=== PATIENT | female | born 1970 | race Caucasian/White ===

== ENCOUNTER 2023-03-11 20:29 | Emergency (ER) | payer BC, SELFPAY ==
[2023-03-11 20:43] VITALS: BP 139/86; PULSE 85; RESP 16; TEMP 36.8; O2SAT 98
--- NOTE | 2023-03-11 21:54 | ED.GENADULT ---
HPI - General Adult General Chief complaint: Abdominal Pain Stated complaint: upper right abdominal pain, white stool Time Seen by Provider: 03/11/23 21:54 History of Present Illness HPI narrative: abd pain, started . White stools. Abd discomfort that comes and goes. The sharp pain is upper right abd area 52-year-old woman presenting to the emergency department with concern of abdominal pain and white stools. She has not had any fever. No illness exposures noted. This pain is waxing waning and sharp in the right upper abdomen maybe across the abdomen. Has not been vomiting. Is not actually having diarrhea. History of cholecystectomy as incidental with gastric bypass. Unknown stone disease. Notes that Mom was a stone former. Review of Systems Status of ROS: Reports: 6 or more systems reviewed and unremarkable except as noted in History and below [facility] Social History Smoking Status: Never smoker Do you use any of these nicotine containing products: None How often do you have a drink containing alcohol: 2-3 times a week How many standard drinks containing alcohol do you have on a typical day: 1 or 2 AUDIT-C Alcohol total score: 3 Non-prescribed substance use: denies use service: No Exam Narrative: Exam Narrative: Pleasant. Clearly seems uncomfortable. Skin is warm and dry. Well-perfused peripherally. Extremities are without edema. I did not appreciate scleral icterus or jaundice. Breathing easily lungs appear to be clear. Is no flank pain. Abdomen is soft and moderately uncomfortable to palpation in the upper abdomen. No masses are appreciated. Const: Vital Signs, click to edit/add: Vital Signs - 24 hr 03/11/23 20:43 Temperature 98.2 F Pulse Rate [Left P ulse Oximeter] 85 Respiratory Rate 16 Blood Pressure [Ri ght Upper Arm] 139/86 Pulse Oximetry 98 Oxygen Delivery Me thod Room Air Documenting provider has reviewed patient's vital signs: yes Course Vital Signs Vital signs: Initial Vital Signs Temperature 98.2 F 03/11/23 20:43 Temperature Source Temporal Artery Scan 03/11/23 20:43 Pulse Rate 85 03/11/23 20:43 Pulse Rhythm Regular 03/11/23 20:43 Respiratory Rate 16 03/11/23 20:43 Blood Pressure 139/86 03/11/23 20:43 Blood Pressure Mean 103 03/11/23 20:43 Blood Pressure Position Sitting 03/11/23 20:43 Pulse Oximetry 98 03/11/23 20:43 Oxygen Delivery Method Room Air 03/11/23 20:43 Vital Signs Temperature 98.2 F 03/11/23 20:43 Pulse Rate 85 03/11/23 20:43 Respiratory Rate 16 03/11/23 20:43 Blood Pressure 139/86 03/11/23 20:43 Pulse Oximetry 98 03/11/23 20:43 Oxygen Delivery Method Room Air 03/11/23 20:43 Temperature 98.2 F 03/11/23 20:43 Pulse Rate 80 03/12/23 05:22 Respiratory Rate 16 03/12/23 05:22 Blood Pressure 136/88 03/12/23 05:22 Pulse Oximetry 98 03/12/23 05:22 Oxygen Delivery Method Room Air 03/12/23 05:22 Medical Decision Making MDM Narrative Medical decision making narrative: Given symptoms location of pain certainly is possible could be having hepatitis or reformed stone. Pancreatitis in differential as well. Certainly could simply be gas pain. Denies constipation. Could be vascular anomaly; no radicular symptoms. Might be some enteritis. Will check labs. Go ahead with ultrasound due to availability. Discussed ultrasound limited of the abdomen with double end tenon operator. Thought to be unremarkable. Pending Radiology over-read. Formal over-read notes normal limited abdominal ultrasound findings. Common bile duct 4 mm. Feels better with IV fluids. Feels gas is beginning to mobilize. Labs are reassuring. See patient discharge plan Lab Data Lab results reviewed: Yes I reviewed the patient's lab results Labs: Lab Results 03/11/23 03/11/23 03/11/23 Range/Units 22:05 23:38 23:45 WBC 6.49 (4.50-11.00) K/uL RBC 5.38 H (4.00-5.20) m/uL Hgb 14.5 (12.0-16.0) gm/dL Hct 45.1 (33.0-51.0) % MCV 84 (80-100) fL MCH 27 (26-34) pg MCHC 32 (32-36) gm/dL Plt Count 205 (140-440) K/uL Neut % (Auto) 49.3 (42.0-72.0) % Lymph % (Auto) 40.2 (20-44) % [place] % (Auto) 7.2 (0.0-11.0) % Eos % (Auto) 2.2 (0.0-7.0) % Baso % (Auto) 0.3 (0.0-3.0) % Neut # (Auto) 3.20 (1.7-7.0) K/uL Lymph # (Auto) 2.60 (0.90-2.90) K/uL [place] # (Auto) 0.50 (0.00-0.90) K/UL Eos # (Auto) 0.10 (0.00-0.50) K/uL Baso # (Auto) 0.00 (0.00-0.30) K/uL Sodium 138 (135-149) mmol/L Potassium 3.3 L (3.6-5.1) mmol/L Chloride 105 (96-114) mmol/L Carbon Dioxide 25 (20-32) mmol/L BUN 19 (7-30) mg/dL Creatinine 0.5 (0.5-1.5) mg/dL Estimated GFR 114 ml/min Glucose 76 (60-115) mg/dL Calcium 8.9 (8.4-10.6) mg/dL Total Bilirubin 0.2 (0.1-1.5) mg/dL Direct Bilirubin 0.0 (0.0-0.5) mg/dL AST 24 (12-35) U/L ALT 37 H (4-35) U/L Alkaline Phosphatase 87 (40-150) U/L C-Reactive Protein < 0.5 L (0.5-1.0) mg/dL Total Protein 7.1 (6.0-8.3) g/dL Albumin (3.3-5.0) g/dL Lipase Cancelled Urine Color Yellow (Yellow) Urine Appearance Clear (Clear) Urine pH 5.5 (5.0-8.5) Ur Specific [place] 1.025 (1.000-1.030) Urine Protein Negative (Negative) Urine Glucose (UA) Negative (Negative) Urine Ketones Negative (Negative) Urine Blood Negative (Negative) Urine Nitrite Negative (Negative) Urine Bilirubin Negative (Negative) Urine Urobilinogen 0.2 (0.2-1.0) Ur Leukocyte Esterase Negative (Negative) Urine RBC 0-2 (0-2) Urine WBC 0-2 (0-5) Ur Squamous Epith Cells Few (None-Few) Urine Bacteria Few A (None) Discharge Plan Discharge Clinical Impression: Abnormal stool color, Abdominal pain Patient Disposition: Home w/ Parent or Adult Condition: Improved Additional Instructions: I would focus on hydration with slow diet advance over the next 24-36 hours. Maybe diluted juices, soup broths. Crackers, toast, rice. Try to increase fiber in your diet as well. Zofran from [facility] for nausea if needed. Follow Up/Referrals: Aminah Perea PA-C [Primary Care Provider] - Stand Alone Forms: [employer] Info Instructions
--- NOTE | 2023-03-11 21:56 | CRLHL7_ITS ---
For Patients: As a result of the Century Cures Act, medical imaging exams and procedure reports are released immediately into your electronic medical record. You may view this report before your referring provider. If you have questions, please contact your health care provider. INDICATION: Right upper quadrant abdomen pain. Status post cholecystectomy TECHNIQUE: Ultrasound abdomen limited. Sonographic images of the right upper quadrant were obtained using curtis-scale and color Doppler images. COMPARISON: None. FINDINGS: Liver: Normal in size and echotexture. No suspicious masses. No intrahepatic biliary dilatation. Gallbladder: Absent. Common bile duct: 4 mm. Pancreas: Partially visualized, unremarkable Right kidney: Normal in size. Normal echotexture and cortex. No suspicious masses, stones, or hydronephrosis. Vasculature: Proximal abdominal aorta and IVC are unremarkable. IMPRESSION: Status post cholecystectomy. Otherwise unremarkable right upper quadrant ultrasound. Dictated by Marcela Block MD @ 03/11/2023 11:30:21 PM (Electronically Signed)
--- NOTE | 2023-03-11 21:58 | ED.NURSE ---
patient does not have a gall bladder and concerned of having stones in the duct. Mother has had this issue also. last eaten was halle
[2023-03-11 23:41] LABS: Appearance Urine Clear (Clear); Bilirubin Urine Negative (Negative); Blood Urine Negative (Negative); Color Urine Yellow (Yellow); Glucose Urine Negative (Negative); Ketones Urine Negative (Negative); Leukocyte Esterase Urine Negative (Negative); Nitrite Urine Negative (Negative); Protein Urine Negative (Negative); Specific Gravity Urine 1.025 (1.000-1.030); Urobilinogen Urine 0.2 (0.2-1.0); pH Urine 5.5 (5.0-8.5)
[2023-03-11] MEDS: 0.9 % SODIUM CHLORIDE 1000 ml 1,000 ML IV (23:47)
[2023-03-11 23:50] LABS: Bacteria Urine Few; RBC Urine 0-2 (0-2); Squamous Epithelial Cell Urine Few (None-Few); WBC Urine 0-2 (0-5)
[2023-03-12 01:11] LABS: White Blood Count* 6.49 K/uL (4.50-11.00)
[2023-03-12 01:12] LABS: Basophils Percent Auto 0.3 % (0.0-3.0); Eosinophils Percent Auto 2.2 % (0.0-7.0); Hematocrit 45.1 % (33.0-51.0); Hemoglobin* 14.5 gm/dL (12.0-16.0); Lymphocytes Percent Auto 40.2 % (20-44); Mean Corpuscular HGB Conc 32 gm/dL (32-36); Mean Corpuscular Hemoglobin 27 pg (26-34); Mean Corpuscular Volume 84 fL (80-100); Monocytes Percent Auto 7.2 % (0.0-11.0); Neutrophils Percent Auto 49.3 % (42.0-72.0); Platelet Count* 205 K/uL (140-440); Red Blood Count 5.38 m/uL (4.00-5.20); Slide Review Reflex No
[2023-03-12 01:24] LABS: Chloride* 105 mmol/L (96-114)
[2023-03-12 01:25] LABS: Potassium* 3.3 mmol/L (3.6-5.1); Sodium* 138 mmol/L (135-149)
[2023-03-12 01:27] LABS: Alkaline Phosphatase* 87 U/L (40-150); Aspartate Amino Transferase* 24 U/L (12-35); Bilirubin Total* 0.2 mg/dL (0.1-1.5); Carbon Dioxide* 25 mmol/L (20-32); Creatinine* 0.5 mg/dL (0.5-1.5); Estimated Glomerular Filt Rate 114 ml/min; Total Protein* 7.1 g/dL (6.0-8.3)
[2023-03-12 01:28] LABS: Alanine Aminotransferase* 37 U/L (4-35); Blood Urea Nitrogen* 19 mg/dL (7-30); Calcium* 8.9 mg/dL (8.4-10.6); Glucose* 76 mg/dL (60-115)
[2023-03-12 01:39] LABS: C Reactive Protein* < 0.5 mg/dL (0.5-1.0)
[2023-03-12] MEDS: 0.9 % SODIUM CHLORIDE 1000 ml 1,000 ML IV (03:48)
[2023-03-12] MEDS: ONDANSETRON 2 MG/ML inj 4 MG IVP (03:48)
[2023-03-12 05:22] VITALS: BP 136/88; PULSE 80; RESP 16; O2SAT 98
== END 2023-03-12 05:23 | disposition home or self-care (01) ==
PROVIDERS: Emergency Provider Family Medicine; PCP Physician Assistant Medical
DX: R10.9 Unspecified abdominal pain (principal); R19.5 Other fecal abnormalities
CPT/HCPCS: 36415; 76705; 80048; 80076; 81001; 83690; 85025; 86140; 87086; 96361; 96374; 99284; J2405; J7030

== ENCOUNTER 2024-02-23 21:19 | Emergency (ER) | payer BC, SELFPAY ==
[2024-02-23 21:24] VITALS: BP 144/95; PULSE 94; RESP 16; TEMP 36.9; O2SAT 98; BMI 34.0
[2024-02-23 22:00] VITALS: O2SAT 97
[2024-02-23] MEDS: ONDANSETRON 2 MG/ML inj 4 MG IVP (22:00)
[2024-02-23] MEDS: 0.9 % SODIUM CHLORIDE 1000 ml 1,000 ML IV ×2 (22:00→22:34)
[2024-02-23] MEDS: HYDROmorphone 0.5 mg/0.5 ml inj IVP (22:04)
[2024-02-23 22:08] LABS: Lactate* 1.2 mmol/L (0.5-1.9)
[2024-02-23 22:11] LABS: Appearance Urine Clear (Clear); Bilirubin Urine 1+ (Negative); Blood Urine Trace-intact (Negative); Color Urine Yellow (Yellow); Glucose Urine Negative (Negative); Ketones Urine Trace (Negative); Leukocyte Esterase Urine Negative (Negative); Nitrite Urine Negative (Negative); Protein Urine Trace (Negative); Specific Gravity Urine >= 1.030 (1.000-1.030); Urobilinogen Urine 0.2 (0.2-1.0); pH Urine 5.5 (5.0-8.5)
--- OUTSIDE RECORDS SUMMARY | 2024-02-23 22:13 | XMS_ITS | Clinical Summary ---
Author Organization [facility] Address [place], [place] [address] Care Team Providers Care Rn Endocrinology Name Role Phone Aminah Perea Primary Care Provider Malinda Chen Unavailable [phone] Elisa Rivera RN Unavailable [phone] Allergies Active Allergy Reactions Criticality Noted Date Comments Carbamazepine Rash 02/17/2020 Medications Medication Sig Dispensed Refills Start Date End Date Status VITAMIN B-12 1,000 MCG SUBLINGUAL TAB 1 tablet daily Ac tive multivitamin chewable (CENTRUM) 8 mg-400 mcg- 10 mcg chew Bariatric chewable 1 tab daily 0 07/14/2021 Active estradioL (ESTRACE) 0.01% (0.1 mg/g) vaginal creamIndications:A trophic vaginitis Insert 1 g into the vagina once weekly. 42.5 g 04/24/2023 Active estradiol 0.0375 mg/24 hr SEMIWEEKLY patchIndications:S /P hysterectomy Apply 1 Patch on dry, clean, hairless skin every Monday and . 24 Patch 3 02/12/2024 Active estradiol 0.0375 mg/24 hr SEMIWEEKLY patchIndications:S /P hysterectomy APPLY 1 PATCH ON DRY, CLEAN, HAIRLESS SKIN EVERY MONDAY AND MONDAY 24 Patch 1 09/04/2023 Discontinue d(Reorder (E-cancel not sent)) benzonatate (Tessalon Perles) 100 mg capsuleIndications :Pneumonia of left lower lobe due to infectious organism Take 1 Capsule (100 mg) by mouth 3 times daily if needed for Cough. 30 Capsule 01/16/2024 4 Discontinue d(*Patient states no longer taking) albuterol HFA (ProAir HFA) 90 mcg/actuation inhalerIndications :Pneumonia of left lower lobe due to infectious organism Inhale 1-2 Puffs by mouth every 6 hours if needed for Shortness of Breath 1st choice. 1 Each 01/16/2024 4 Discontinue d(*Patient states no longer taking) fluconazole (DIFLUCAN) 150 mg tabletIndications: Antibiotic-induced yeast infection Take 1 Tablet (150 mg) by mouth once weekly. 2 Tablet 01/16/2024 4 Discontinue d(*Patient states no longer taking) Active Problems Patient Care Coordination No te Formatting of this note is d ifferent from the original. Weight Management - Adult Surgical Program Patient Received Binder: Yes Part of [facility]TY[facility] Program: no RDC or GS Patient: No Initial Consult / Established Care 06/21/2022 with Malinda Rivera RN [facility] Candidate: yes Intake: Wt Readings from Last 1 Encounters: 06/21/22 78.7 kg (173 lb 9.6 oz) lbs, Ht Readings from Last 1 Encounters: 06/21/22 1.549 m (5' 0.98) BMI: 32.82 Planned Operation Distalization Payor: [employer] [place] / Plan: [employer]PAD [employer] [place] / Product Type: *No Product type* / Insurance requirements:None Est. Pgm Completion: ~ September, Procedure Location: [facility] Co-morbidities: To be determined Possible GERD Orders: Labs Yes - RESULTED 06/22/2022: low ferritin. Venofer therapy ordered at [place] by LISE Teixeira. Imaging / Procedures Upper GI Xray Series (08/15/22) and Endoscopy - Dock (08/30/22) Pre-Surgery Program Consults: - Registered Dietitian 3 - Psychological Evaluation: yes Referrals: No reports that she has never smoked. She has never used smokeless tobacco. Problem Noted Date Diagnosed Date Abdominal pain 10/30/2014 Constipation 10/30/2014 S/P gastric bypass 09/21/2010 Unspecified vitamin D deficiency 01/01/2009 Fatigue 05/06/2008 ASMITA (iron deficiency anemia) 05/06/2008 Unspecified intestinal malabsorption 05/06/2008 Weight gain status post gastric bypass Resolved Problems Problem Noted Date Diagnosed Date Resolved Date Other abnormal glucose 05/20/200810/30 Overview: Fasting 108 05/05 Encounters Date Type Department Care Team Description 02/12/2024 7:30 AM CDT Office Visit [facility] [address] [place] [address] Aminah Perea PA Physical (53 years old) 02/12/2024 Travel 01/16/2024 8:00 AM CDT Ancillary Procedure [facility] [address] [place] [address] 01/16/2024 7:25 AM CDT Office Visit [facility] [address] [place] [address] Jacques Pozo PA URI 01/16/2024 Travel 12/19/2023 11:30 AM CDT Office Visit [facility] [address] [place] [address] Chadwick Fragoso MD Sinus Problem 12/19/2023 Travel from Last 3 Months Immunizations Name Administration Dates Next Due COVID-19 vaccine (Moderna 100mcg/0.5mL) PF, MDV 07/09/2021,10/15/2020,09/17/2020 Influenza RIV4 (Age 18+ Year s) PRESERV FREE 07/09/2021 Influenza, IIV3 (Age 6-35 mos) 06/19/2009 Influenza, IIV3 (Age >=3 years) 05/02/20 14,05/03/2013,06/01/2012, 011,06/04/2010,07/14/2006,08/18/2005,04/2003 Influenza, IIV4 05/01/2015 Influenza, IIV4 (=>6mos) MDV 05/10/2019,05/11/20 18,05/12/2017 Td (Age >=7 Years) 02/27/2003 Tdap 05/16/2014 Family History Medical History Relation Name Comments Hyperlipidemia Father Hypertension Father Psychiatric illness Father Stroke Father Diabetes Maternal Grandmother Hyperlipidemia Mother Hypertension Mother Osteoporosis Mother Psychiatric illness Paternal Grandmother Cancer-breast No Family History Relation Name Status Comments Father Alive Maternal Grandfather Maternal Grandmother Mother Alive Paternal Grandfather Paternal Grandmother Social History Tobacco Use Types Packs/Day Years Used Date Smoking Tobacco: Never Smokeless Tobacco: Never Tobacco Cessation:Counseling Given: Yes Alcohol Use Standard Drinks/Week Comments Yes 1 (1 standard drink = 0.6 oz pur e alcohol) 1 drink weekly PHQ-2 Answer Date Recorded PHQ-2 TOTAL SCORE 3 02/12/2024 Social Connections Answer Date Recorded Frequency of Communication with Friends and Fami ly 0 01/16/2024 Financial Resource Strain Answer Date R ecorded Difficulty of Paying Living Expenses 3 01/16/2024 Difficulty of Paying Living Expenses Not on file 01/16/2024 Food Insecurity Answer Date Recorded Worried About Running Out of Food in the Last Ye ar 1 01/16/2024 Transportation Needs Answer Date Record ed Lack of Transportation (Medical) 1 01/16/2024 Housing Stability Answer Date Recorded Unable to Pay for Housing in the Last Year 1 01/16/2024 Sex and Gender Information Value Date Recorded Sex Assigned at Female 03/17/2020 8:00 AM CDT Gender Identity Female 03/17/2020 8:00 AM CDT Sexual Orientation Straight 03/17/2020 7: 59 AM CDT Travel History Travel Start Travel End [place] 01/27/2024 02/01/2024 Obstetrics History Para Term AB IAB SAB Ectopic Multiple Livin g Live Births 2 2 2 0 0 0 0 0 2 Date Outcome GA Total Labor Labor/2nd/3rd Weight Sex Type Anes PTL Louise A1 A5 Name Clin Term Term Last Filed Vital Signs Vital Sign Reading Time Taken Comments Blood Pressure 135/88 02/12/2024 7:31 AM CDT Pulse 64 02/12/2024 7:31 AM CDT Temperature 38.1 ??C (100.5 ??F) 01/16/2024 7:22 AM C DT Respiratory Rate 16 03/28/2023 5:36 PM CDT Oxygen Saturation 94% 01/16/2024 7:22 AM CDT Inhaled Oxygen Concentration - - Weight 82.2 kg (181 lb 3.2 oz) 02/12/2024 7:31 A M CDT Height 154.9 cm (5' 1) 02/12/2024 7:31 AM CDT Body Mass Index 34.24 02/12/2024 7:31 AM CDT Plan of Treatment Health Maintenance Due Date Last Done Comments HIV for age 15-65 1987 Hepatitis C screening for age 18-79 1990 Zoster (shingles) series for age 50+ (1 of 2) 2022 COVID-19 vaccine series (2022- season) 2023 07/09/2021, 10/15/2020, 09/17/2020 Mammogram for age 45-75 03/16/2024 03/16/20, 03/14/2022, 03/02/2020 Fecal testing non-DNA (FIT,FOBT,iFOBT) for age 45-75 03/31/2024 03/31/2023, 03/15/2022 Influenza for age 50-64 04/28/2024 07/09/20, 05/10/2019, 05/11/2018, Additional history exists Tetanus booster 05/16/2024 05/16/2014, 02/27/2003 BMI (ht and wt on same day) for age 18+ 02/11/2025 02/12/2024, 03/28/2023, 01/17/2023, Additional history exists Depression screening for age 12+ 02/11/2025 02/12/2024, 04/20/2022, 04/06/2022, Additional history exists Lipids for age 45-75 02/11/2029 02/12/2024, 01/10/2023, 03/14/2022, Additional history exists Pap test for age 21-65 Discontinued 02/05/2007 Tdap Completed 05/16/2014 Pneumococcal series for age 6-64 Aged Out No longer eligible based on patient's age to complete this topic Procedures Procedure Name Priority Date/Time Associated Diagnosis Comments BASIC METABOLIC PANEL Routine 02/12/2024 8:07 AM CDT Screening for diabetes mellitus LIPID PANEL W REFLEX MEASURED LDL Routine 02/12/2024 8:07 AM CDT Screening cholesterol level XR CHEST 2 VIEWS PA AND LATERAL STAT 01/16/2024 7:54 AM CDT Body aches Fever, unspecified fever cause Influenza-like illness STREP A PCR Routine 01/16/2024 7:41 AM CDT Fever, unspecified fever cause THROAT RAPID STREP A WITH REFLEX Routine 01/16/2024 7:41 AM CDT Fever, unspecified fever cause COVID/FLU/RSV PANEL Routine 01/16/2024 7:32 AM CDT Body aches Fever, unspecified fever cause OCCULT BLOOD IFOBT STOOL Routine 03/31/2023 1:13 PM CDT Screening for colon cancer XR MAMMO BILAT SCREENING Routine 03/16/2023 8:22 AM CDT Visit for screening mammogram AUTO EMISSIONS TECHNICIAN THIN PREP PAP SCREEN IMAGED Routine 02/05/2007 11:10 AM CDT Routine Gynecological Examination from Last 3 Months or Most Recently Relevant to Health Maintenance Results * (ABNORMAL) LIPID PANEL W REFLEX MEASURED LDL (02/12/2024 8:07 AM CDT) CHOLESTEROL,TOTAL 225(H) 100 - 199 mg/dL 02/12/2024 2:00 PM CDT [facility] Comment: Cholesterol, Total Reference Ranges Desirable <200 mg/dL Borderline 200-239 mg/dL High >=240 mg/dL TRIGLYCERIDES 101 <150 mg/dL 02/12/2024 2:00 PM CDT [facility] HDL CHOLESTEROL 64 >40 mg/dL 2:00 PM CDT [facility] NON-HDL CHOLESTEROL 161(H) <145 mg/dl 02/12/2024 2:00 PM CDT [facility] CHOL/HDL RATIO 3.52 <4.50 02/12/2024 2:00 PM CDT [facility] TRA [facility] LDL CHOLESTEROL 141(H) <=130 mg/dL 02/12/2024 2:00 PM CDT [facility] VLDL CHOLESTEROL 20 <=30 mg/dL 02/12/2024 2:00 PM CDT [facility] PROVIDER ORDERED STATUS RANDOM 02/12/2024 2:00 PM T [facility] Blood BLOOD SPECIMEN / Unknown Venipuncture / Unknown 02/12/2024 8:07 AM CDT 02/12/2024 8:07 AM CDT Aminah LEZAMA CHEMISTRY [facility] [address] [place] [address], * (ABNORMAL) BASIC METABOLIC PANEL (02/12/2024 8:07 AM CDT) SODIUM 141 136 - 145 mmol/L 02/12/2024 2:00 PM CDT [facility] POTASSIUM 4.3 3.5 - 5.1 mmol/L 02/12/2024 2:00 PM CDT [facility] CHLORIDE 106 98 - 107 mmol/L 02/12/2024 2:00 PM CDT [facility] CO2,TOTAL 27 22 - 29 mmol/L 02/12/2024 2:00 PM T [facility] ANION GAP 8 5 - 18 02/12/2024 2:00 PM CDT [facility] GLUCOSE 97 70 - 99 mg/dL 02/12/2024 2:00 PM T [facility] CALCIUM 9.7 8.6 - 10.0 mg/dL 02/12/2024 2:00 PM CDT [facility] BUN 18 6 - 20 mg/dL 02/12/2024 2:00 PM CDT [facility] CREATININE 0.51 0.50 - 0.90 mg/dL 02/12/2024 2:00 PM CDT [facility] BUN/CREAT RATIO 35(H) 10 - 20 2:00 PM CDT [facility] eGFR >90 >90 mL/min/1.7 3m2 02/12/2024 2:00 PM CDT [facility] Comment:As of 2021, eG FR is calculated by the CKD-EPI creatinine equation without race adjustment. ??eGFR can be influenced by muscle mass, exercise, and diet. ??The reported eGFR is an estimation only and is only applicable if the renal function is stable. Blood BLOOD SPECIMEN / Unknown Venipuncture / Unknown 02/12/2024 8:07 AM CDT 02/12/2024 8:07 AM CDT Aminah LEZAMA CHEMISTRY [facility] [address] [place] [address], [place] * XR CHEST 2 VIEWS PA AND LATERAL (01/16/2024 7:54 AM CDT) Anatomical Region Laterality Modality CHEST, THORAX, Lung, HEART Compu rell Radiography 01/16/2024 8:14 AM CDT Addenda Addendum by Irving Guaamn MD on 01/16/2024 8:22 AM CDT INDICATION: Body aches TECHNIQUE: Chest 2 views. COMPARISON: None. FINDINGS: Cardiovascular and mediastinum: ??Heart size and vasculature are normal in caliber and appearance. ?? Lungs and pleural spaces: ??Patchy consolidation at the left lung base concerning for pneumonia. No sign of pleural effusion. ??No pneumothorax. ?? Bones and soft tissues: ??No significant findings. IMPRESSION: Patchy consolidation at the left lung base concerning for pneumonia. Dictated by Irving Guaman MD @ 01/16/2024 8:14:00 AM ----- ADDENDUM ----- JACQUES LEZAMA received report at 8:19am Dictated by Irving Guaman MD @ Jan 16 2024 ??8:22AM (Electronically Signed) Impressions 01/16/2024 8:14 AM CDT Patchy consolidation at the left lung base concerning for pneumonia. Dictated by Irving Guaman MD @ 01/16/2024 8:14:00 AM (Electronically Signed) Narrative 01/16/2024 8:14 AM CDT For Patients: ??As a result of the Cures Act, medical imaging exams and procedure reports are released immediately into your electronic medical record. ??You may view this report before your referring provider. ??If you have questions, please contact your health care provider. INDICATION: Body aches TECHNIQUE: Chest 2 views. COMPARISON: None. FINDINGS: Cardiovascular and mediastinum: ??Heart size and vasculature are normal in caliber and appearance. ?? Lungs and pleural spaces: ??Patchy consolidation at the left lung base concerning for pneumonia. No sign of pleural effusion. ??No pneumothorax. ?? Bones and soft tissues: ??No significant findings. Procedure Note Irving Guaman MD - 01/16/2024 For Patients: As a result of the Cures Act, medical imagingexams and procedure reports are released immediately into your electronicmedical record. You may view this report before your referring provider.If you have questions, please contact your health care provider. INDICATION: Body aches TECHNIQUE: Chest 2 views. COMPARISON: None. FINDINGS: Cardiovascular and mediastinum: Heart size and vasculature are normal incaliber and appearance. Lungs and pleural spaces: Patchy consolidation at the left lung baseconcerning for pneumonia. No sign of pleural effusion. No pneumothorax. Bones and soft tissues: No significant findings. IMPRESSION: Patchy consolidation at the left lung base concerning for pneumonia. Dictated by Irving Guaman MD @ 01/16/2024 8:14:00 AM (Electronically Signed) Jacques PABLO IMAGIN G * STREP A PCR (01/16/2024 7:41 AM CDT) GROUP A STREP Negative 01/16/2024 3:52 PM CDT [facility] Throat SPECIMEN FROM THROAT / Unknown Non-Blood / Unknown 01/16/2024 7:41 AM CDT 01/16/2024 7:50 AM CDT Jacques LEZAMA MICROBIOLOGY [facility] [address] [place] [address], * THROAT RAPID STREP A WITH REFLEX (01/16/2024 7:41 AM CDT) STREP A ANTIGEN Negative 01/16/2024 7:54 AM CDT [facility] Comment:PCR to follow. Throat SPECIMEN FROM THROAT / Unknown Non-Blood / Unknown 01/16/2024 7:41 AM CDT 01/16/2024 7:41 AM CDT Jacques LEZAMA MICROBIOLOGY Performing Organization Address [facility] Co de Phone Number [facility] [address] [place] [address], * COVID/FLU/RSV PANEL (01/16/2024 7:32 AM CDT) COVID 19 [facility] Negative Negative 01/16/2024 4:09 PM CDT [facility] Comment:All PCR tests are reagan bject to false negative result due to variability in viral load and collection technique. A negative result does not rule out a SARS-CoV-2 infection. Clinical correlation required. INFLUENZA A PCR Negative 4 4:09 PM CDT [facility] INFLUENZA B PCR Negative 4 4:09 PM CDT [facility] Respiratory Syncytial Virus Negative 01/16/2024 4:09 PM CDT [facility] Swab NASOPHARYNGEAL SWAB / Unknown Non-Blood / Unknown 01/16/2024 7:32 AM CDT 01/16/2024 7:33 AM CDT Jacques LEZAMA MICROBIOLOGY [facility] [address] [place] [address], [place] * OCCULT BLOOD IFOBT STOOL (03/31/2023 1:13 PM CDT) STOOL BLOOD ,IFOBT Negative Negative 04/05/2023 8:54 AM CDT [facility] Stool STOOL SPECIMEN / Unknown Non-Blood / Unknown 03/31/2023 1:13 PM CDT 04/04/2023 1:13 PM CDT Aminah LEZAMA LABORATORY [facility] [address] [place] [address], * XR MAMMO BILAT SCREENING (03/16/2023 8:22 AM CDT) Anatomical Region Laterality Modality BREASTS, Breast Left, Breast Right Bilateral Mammography Impressions 03/16/2023 4:37 PM CDT ??There is no radiographic evidence for malignancy. ??Recommend annual mammograms. MAMMOGRAM ASSESSMENT: ??ACR 1 Negative PATIENTS: You will also receive a letter with your examination results in an easy to read format. ??If you have questions about your results, please contact your referring provider. Narrative 03/16/2023 4:37 PM CDT For Patients: As a result of the Century Cures Act, medical imaging exams and procedure reports are released immediately into your electronic medical record. You may view this report before your referring provider. If you have questions, please contact your health care provider. XR MAMMO BILAT SCREENING [[id number]] CLINICAL HISTORY: ??This is an asymptomatic 52 y.o. patient. INDICATION FOR EXAM: Mammogram Screening. TECHNIQUE: CC & MLO views were obtained. ??This study was evaluated with the assistance of Computer-Aided Detection. COMPARISON FILM: Yes 03/14/22 [facility] [employer] 03/02/20 [facility] FINDINGS: ??The breasts have scattered areas of fibroglandular density. There are no dominant masses, suspicious micro calcifications or areas of architectural distortion. Aminah LEZAMA MAMMO * AUTO EMISSIONS TECHNICIAN THIN PREP PAP SCREEN IMAGED (02/05/2007 11:10 AM CDT) CYTOLOGY ??CYTOPATHOLOGY REPORT [facility] ?? Status: Final Report ? [id number] ?? CLINICAL INFORMATION ?LMP ? : 10/04 ?Previous Pap Date ? : Not given ?Previous PAP Dx ? : Negative for intraepithelial lesion or ?malignancy. ?Previous Victor/bx date : None ?Previous Colposcopy/Bx: None ?Hormone Usage ? : None ?Menstrual Status ?: other: see comment ?Appearance of Cervix ??: WNL ?Victor/Bx done today ?: No ?HPV Request ? : Reflex HPV test if PAP Dx ASCUS ?? SPECIMEN SOURCE ?: Cervical/vaginal ThinPrep Vial, screening ?? SPECIMEN ADEQUACY ?: Satisfactory for evaluation Endocervical ?component present. ? INTERPRETATION/RES ULT: ?Negative for intraepithelial lesion or malignancy. ? Cytology 1st Screener : ??gw ?? Signed by: ? gw ?? This specimen was screened by the FDA approved ThinPrep Imaging ?? System and manually reviewed. ?? NOTE: The Pap test is a screening technique, not a diagnostic ?? procedure. It is used primarily to screen for squamous cancers and ?? precursor lesions. Published studies have shown that it is subject to ?? both false negative and false positive results. The pap test should ?? not be used as the sole means to diagnose or exclude pre-malignant and ?? malignant lesions. ?? COLLECTED: 02/05/07 ?? ACCESSIONED: 02/05/07 ?? SIGNED: 02/07/07 [facility] Cervical (Cervical) 02/05/2007 11:10 AM CDT 02/05/2007 11:06 AM CDT Jackie Plaza MD PATHOLOGY/CYTOLO GY [facility] INTERNAL ZIP [address] [place] [phone] from Last 3 Months or Most Recently Relevant to Health Maintenance Advance Directives * Full Code (Latest Code Status on File) Date Activated Date Inactivated Comments 08/30/2022 10:33 AM 08/30/2022 2:36 PM Question Answer Comments Code Status Discussion: Reviewed Preferences Care Teams Rn Endocrinology Relationship Specialty Start Date End Date Aminah Perea PA [address] [place] [address] PCP - General Physician It Support Consultant 02/18/20 Malinda Chen PA [address] [id number] Physician's It Support Consultant Physician It Support Consultant 06/21/22 Elisa Rivera RN [address] [id number] Product Designer Registered Nurse 06/21/22
--- OUTSIDE RECORDS SUMMARY | 2024-02-23 22:13 | XMS_ITS | Referral Summary ---
Author Organization [facility] Address [address] [place] [address] Care Team Providers Care Director Construction Services Name Role Phone No Ref-Primary, Physician Primary Care Provider Allergies Active Allergy Reactions Criticality Noted Date Comments Carbamazepine Swelling High 06/15/2017 Lips and face Nsaids 10/01/2014 Doesn't take secondary to gastric bypass 06/09/2017 Medications Medication Sig Dispensed Refills Start Date End Date Status cyanocobalamin [address] 1 tablet under the tongue daily Active estradiol (VIVELLE-DOT) 0.075 MG/24HR BIW patch Place 1 patch onto the skin twice a week Active ONDANSETRON PO Take 1 tablet by mouth every 8 hours as needed Active SUMATRIPTAN SUCCINATE PO Take 50 mg by mouth every 8 hours as needed Active HYDROcodone-acetami nophen (NORCO) 5-325 MG per tabletIndications:F emale genital prolapse, unspecified type Take 1-2 tablets by mouth every 4 hours as needed for other (Moderate to Severe Pain) 30 tablet 06/17/2017 Active Additional Information Patient not taking.Reported on 08/06/2019 Resolved Problems Problem Noted Date Diagnosed Date Resolved Date Prolapse of female pelvic organs 06/16/2017 06/17/2017 Social History Tobacco Use Types Packs/Day Years Used Date Smoking Tobacco: Never Alcohol Use Standard Drinks/Week Comments Yes 0 (1 standard drink = 0.6 oz pur e alcohol) socially Adolescent Education Answer Date Record ed Getting School Help Needed Not on file 06/10 Sex and Gender Information Value Date Recorded Sex Assigned at Not on file Gender Identity Not on file Sexual Orientation Not on file Last Filed Vital Signs Vital Sign Reading Time Taken Comments Blood Pressure 121/83 08/06/2019 2:10 PM MAINTENANCE SHOP TECHNICIAN Pulse 82 08/06/2019 2:10 PM MAINTENANCE SHOP TECHNICIAN Temperature 37.1 ??C (98.8 ??F) 08/06/2019 2:10 PM CS T Respiratory Rate 16 06/17/2017 7:23 AM CDT Oxygen Saturation 98% 08/06/2019 2:10 PM MAINTENANCE SHOP TECHNICIAN Inhaled Oxygen Concentration - - Weight 70.8 kg (156 lb 1.6 oz) 08/06/2019 2:10 P M MAINTENANCE SHOP TECHNICIAN Height 154.9 cm (5' 1) 08/06/2019 2:10 PM MAINTENANCE SHOP TECHNICIAN Body Mass Index 29.49 08/06/2019 2:10 PM MAINTENANCE SHOP TECHNICIAN Plan of Treatment Not on file Medical Devices Implanted Type Area Billposter Device Identifier Shelf Expiration Date Model / Serial / Lot Mesh Sling Artisyn Sacrocolpopexy Arty Implanted:Qty: 1 on 06/16/2017 by Casey Olsen MD at [facility] Mesh N/A: Pelvis [employer]- 12/25/2018 [id number] / / [id number] Advance Directives For more information, please contact: [phone] * Full Code (Latest Code Status on File) Date Activated Date Inactivated Comments 06/16/2017 6:33 PM 06/17/2017 1:59 PM Care Teams Director Construction Services Relationship Specialty Start Date End Date No Ref-Primary, Physician PCP - General 06/14/17
--- OUTSIDE RECORDS SUMMARY | 2024-02-23 22:13 | XMS_ITS | Clinical Summary ---
Author Organization [facility] Address [address] [place] [address] Care Team Providers Care Cabinetmaker Maintenance Name Role Phone No Ref-Primary, Physician Primary [...] Comments Blood Pressure 121/83 08/06/2019 2:10 PM FREIGHT WEIGHER Pulse 82 08/06/2019 2:10 PM FREIGHT WEIGHER Temperature 37.1 ??C (98.8 ??F) 08/06/2019 2:10 PM CS T Respiratory Rate 16 06/17/2017 7:23 AM CDT Oxygen Saturation 98% 08/06/2019 2:10 PM FREIGHT WEIGHER Inhaled Oxygen Concentration - - Weight 70.8 kg (156 lb 1.6 oz) 08/06/2019 2:10 P M FREIGHT WEIGHER Height 154.9 cm (5' 1) 08/06/2019 2:10 PM FREIGHT WEIGHER Body Mass Index 29.49 08/06/2019 2:10 PM FREIGHT WEIGHER Plan of Treatment Not on file Medical Devices Implanted Type Area Representative Device Identifier Shelf Expiration Date Model / Serial / Lot Mesh Sling Artisyn Sacrocolpopexy Arty Implanted:Qty: 1 on 06/16/2017 by Casey Olsen MD at [facility] Mesh N/A: Pelvis [employer]- 12/25/2018 [id number] / / [id number] Advance Directives For more information, please contact: [phone] * Full Code (Latest Code Status on File) Date Activated Date Inactivated Comments 06/16/2017 6:33 PM 06/17/2017 1:59 PM Care Teams Cabinetmaker Maintenance Relationship Specialty Start Date End Date No Ref-Primary, Physician PCP - General 06/14/17
[2024-02-23 22:21] LABS: Bacteria Urine Moderate; RBC Urine 0-2 (0-2); Squamous Epithelial Cell Urine Moderate (None-Few); WBC Urine 0-2 (0-5)
[2024-02-23 22:23] LABS: Albumin* 4.5 g/dL (3.3-5.0); Chloride* 102 mmol/L (96-114); Sodium* 136 mmol/L (135-149)
[2024-02-23 22:24] LABS: Potassium* 3.4 mmol/L (3.6-5.1)
[2024-02-23 22:25] LABS: Amylase* 78 U/L (18-89)
[2024-02-23 22:26] LABS: Alkaline Phosphatase* 90 U/L (40-150); Anion Gap 5 mEq/L (7-15); Aspartate Amino Transferase* 39 U/L (12-35); Basophils Percent Auto 0.1 % (0.0-3.0); Bilirubin Direct* 0.3 mg/dL (0.0-0.5); Bilirubin Total* 0.5 mg/dL (0.1-1.5); Blood Urea Nitrogen* 11 mg/dL (7-30); Carbon Dioxide* 29 mmol/L (20-32); Creatinine* 0.5 mg/dL (0.5-1.5); Eosinophils Percent Auto 0.1 % (0.0-7.0); Est. Creatinine Clearance* 100.45; Estimated Glomerular Filt Rate 113 ml/min; Hematocrit 43.4 % (33.0-51.0); Hemoglobin* 13.9 gm/dL (12.0-16.0); Immature Granulocytes Pct Auto 1.3 %; Lymphocytes Percent Auto 11.3 % (20-44); Mean Corpuscular HGB Conc 32 gm/dL (32-36); Mean Corpuscular Hemoglobin 27 pg (26-34); Mean Corpuscular Volume 83 fL (80-100); Monocytes Percent Auto 4.4 % (0.0-11.0); Neutrophils Percent Auto 82.8 % (42.0-72.0); Platelet Count* 271 K/uL (140-440); RDW Coefficient of Variation % 15.9 % (11.5-15.5); Red Blood Count 5.22 m/uL (4.00-5.20); Total Protein* 7.3 g/dL (6.0-8.3); White Blood Count* 20.19 K/uL (4.50-11.00)
[2024-02-23 22:27] LABS: Alanine Aminotransferase* 63 U/L (4-35); Calcium* 9.1 mg/dL (8.4-10.6); Glucose* 120 mg/dL (60-115)
[2024-02-23 22:29] LABS: C Reactive Protein* 7.5 mg/dL (0.5-1.0)
[2024-02-23 22:31] LABS: Slide Review Reflex No
--- NOTE | 2024-02-23 22:31 | ED.NAVMDI ---
HPI - Nausea/Vomiting/Diarrhea General Date Seen: 02/23/24 Chief complaint: Nausea/Vomiting Stated complaint: unable to drink, blood clots in stool Time Seen by Provider: 02/23/24 21:22 Source: patient and family Mode of arrival: ambulatory Limitations: no limitations History of Present Illness HPI Narrative: Patient is a 53-year-old female presents here with her for evaluation of a 24 hour illness. This started with a fever yesterday of a temperature 102? at home, and then approximately 12-16 hours ago started with abdominal discomfort fullness, and pressure up into her chest with this. She also somewhat felt this in her back also, this is associated with it least 20 episodes of diarrhea. Some of the diarrhea had some reddish fluid but was overall yellow. She says she has not really Peed today at all, but does not have dysuria frequency. She has nausea associated with this but has not vomited, this is not uncharacteristic when she gets ill because she has had gastric bypass. And says she really can not vomit. Has never before felt quite like this. Denies any suspected chest pain, presyncope, leg swelling, rashes, She recently came back from [place], no one else got sick, that was approximately 3 weeks ago. 4 weeks ago however she was treated with doxycycline for presumed pneumonia. She took approximately 4 days of this. She does not have a history of C difficile but has a history of a lot of abdominal issues, and operations. RONEY and BSO, appendectomy, cholecystectomy, gastric bypass, endometriosis, with lysis of adhesions, Pertinent past history: abdominal surgery Description of diarrhea: blood, mucus and loose Associated nausea: Yes Associated abdominal pain: Yes Location of pain: diffuse Pain consistency: constant Severity: moderate Quality: cramping, aching, dull and constant Exacerbating factors: eating Relieving factors: none Context: foreign travel and recent antibiotic use Associated symptoms: myalgias, fever/chills, loss of appetite, malaise, nausea/vomiting, weakness, decreased urine output, tenesmus, fatigue and bloating Treatment prior to arrival: none Related Data Home Medications ?Medication ?Instructions ?Recorded ?Confirmed estradiol 0.01% (0.1 mg/gram) 1 g vaginal 02/23/24 vaginal cream Previous Rx's ?Medication ?Instructions ?Recorded ciprofloxacin HCl 500 mg tablet 500 mg PO BID #20 tabs 02/24/24 (Cipro) metronidazole 500 mg tablet 500 mg PO BID #20 tabs 02/24/24 Allergies Allergy/AdvReac Type Severity Reaction Status Date / Time carbamazepine AdvReac Verified 02/23/24 21:28 Review of Systems Status of ROS: Reports: 10 or more systems reviewed and unremarkable except as noted in History and below GI: Reports: nausea PFSH PFSH Surgical History History of cholecystectomy ?Z90.49 - Acquired absence of other specified parts of digestive tract (ICD-10) H/O gastric bypass ?Z98.84 - Bariatric surgery status (ICD-10) Social History Smoking Status: Never smoker Do you use any of these nicotine containing products: None How often do you have a drink containing alcohol: 2-3 times a week How many standard drinks containing alcohol do you have on a typical day: 1 or 2 AUDIT-C Alcohol total score: 3 Non-prescribed substance use: denies use service: No Exam Narrative: Exam Narrative: I find her in room 6, she is in no apparent distress alert oriented x3, nontoxic in appearance, but uncomfortable per A little bit pale, pupils equal round reactive to light, her neck is supple there is no meningismus or TMs are normal her oropharynx is dry. Chest is good air entry bilaterally with no wheezing crackles noted her heart sounds are normal no clicks murmurs or gallops her abdomen shows some mild tenderness throughout all the areas. Her bowel sounds are quiet they do not detect any peritoneal signs and there is no organomegaly. There is no CVA tenderness, no tenderness over the thoracic lumbar or cervical spine, she does not have any rashes, her skin turgor is normal neurologically intact in her upper lower extremities moving all extremities independently well can sit up for me. And move her legs around. There is no evidence of any rashes. Const: Vital Signs, click to edit/add: Vital Signs - 24 hr 02/23/24 21:24 02/23/24 22:00 Temperature 98.5 F Pulse Rate [Pulse Oximeter] 94 Respiratory Rate 16 Blood Pressure [Ri ght Upper Arm] 144/95 H Pulse Oximetry 98 97 Oxygen Delivery Me thod Room Air Documenting provider has reviewed patient's vital signs: yes Course Course ED Course: 10:49 p.m. With a nurse blacksmith assistant present rectal exam is done, there is no blood on my examining finger and really scant evidence of anything, I did send swabs for both C diff, and occult blood. I discussed with them, as she is feeling better, I still would with the high white count in the history do a CT scan with IV contrast to further delineate this as I think this is possibly an intestinal issue. Possibly colitis, or diverticulitis. Reevaluation(s) Time of Reevaluation #1: 02:09 Reevaluation #1: Discussed with the patient the laboratory findings, along with the treatment, she is markedly improved, we will send her home with some pain medication nausea, and also metronidazole and Cipro. Differential diagnosis includes infectious etiology, ulcerative colitis, inflammatory bowel disease, SCAD, diverticulitis could all be causing this. Think C diff is unlikely as her culture was negative here. We will send off a culture also. I have given her warning signs, and she will return if these occur. Recommend follow-up with primary care, she told me that they were monitoring her left lung, and this the same spot that were seen the infiltrate/atelectasis, she needs a dedicated CT of the area. This should be done when she sees her primary care physician in follow-up. Vital Signs Vital signs: Initial Vital Signs Temperature 98.5 F 02/23/24 21:24 Temperature Source Temporal Artery Scan 02/23/24 21:24 Pulse Rate 94 02/23/24 21:24 Respiratory Rate 16 02/23/24 21:24 Blood Pressure 144/95 H 02/23/24 21:24 Blood Pressure Mean 111 H 02/23/24 21:24 Blood Pressure Position Sitting 02/23/24 21:24 Pulse Oximetry 98 02/23/24 21:24 Oxygen Delivery Method Room Air 02/23/24 21:24 Vital Signs Temperature 98.5 F 02/23/24 21:24 Pulse Rate 94 02/23/24 21:24 Respiratory Rate 16 02/23/24 21:24 Blood Pressure 144/95 H 02/23/24 21:24 Pulse Oximetry 98 02/23/24 21:24 Oxygen Delivery Method Room Air 02/23/24 21:24 Temperature 98.5 F 02/23/24 21:24 Pulse Rate 94 02/23/24 21:24 Respiratory Rate 16 02/23/24 21:24 Blood Pressure 144/95 H 02/23/24 21:24 Pulse Oximetry 97 02/23/24 22:00 Oxygen Delivery Method Room Air 02/23/24 21:24 Medications Administered Medications: Generic Name Dose Route Start Last Admin Trade Name Di PRN Reason Stop Dose Admin Ciprofloxacin 500 mg 02/24/24 02:04 02/24/24 02:08 Ciprofloxacin 500 Mg Tablet PO 02/24/24 02:05 500 mg ONCE STA Administration Hydromorphone HCl 0.5 mg 02/24/24 01:26 02/24/24 01:32 Hydromorphone 0.5 Mg/0.5 Ml Inj IVP 02/24/24 01:27 0.5 mg ONCE ONE Administration Metronidazole 500 mg 02/24/24 02:04 02/24/24 02:08 Metronidazole 500 Mg Tablet PO 02/24/24 02:05 500 mg ONCE ONE Administration Discontinued Medications Generic Name Dose Route Start Last Admin Trade Name Di PRN Reason Stop Dose Admin Hydromorphone HCl 0.5 mg 02/23/24 21:52 02/23/24 22:04 Hydromorphone 0.5 Mg/0.5 Ml Inj IVP 02/23/24 21:53 0.5 mg ONCE ONE Administration Sodium Chloride 1,000 mls @ 1,000 mls/hr 02/23/24 22:00 02/23/24 23:37 0.9 % Sodium Chloride 1000 Ml IV 02/23/24 22:59 Infused .Q1H RENEE Infusion Sodium Chloride 1,000 mls @ 1,000 mls/hr 02/23/24 22:30 02/24/24 01:00 0.9 % Sodium Chloride 1000 Ml IV 02/23/24 23:29 Infused .Q1H RENEE Infusion Ondansetron HCl 4 mg 02/23/24 21:52 02/23/24 22:00 Ondansetron 2 Mg/Ml Inj IVP 02/23/24 21:53 4 mg ONCE ONE Administration MDM - Nausea/Vomiting/Diarrhea MDM Narrative Medical decision making narrative: During the evaluation of this patient I considered multiple differential diagnosis including life-threatening differentials which are appendicitis, aortic aneurysm, mesenteric ischemia, bowel perforation, ectopic , volvulus and bowel obstruction, other differential diagnosis include but are not limited to inflammatory bowel disease, cholecystitis, pancreatitis, hepatitis, gastritis, GERD, diverticulitis, peptic ulcer disease, pyelonephritis/UTI, renal colic/stone, pelvic inflammatory disease, cervicitis, endometritis, intrauterine , dysfunctional uterine bleeding, ovarian cyst/torsion, spontaneous as well as other etiologies Medical Records Attestation: I reviewed the patient's medical records. Lab Data Attestation: I reviewed the patient's lab results. Labs: Lab Results 02/23/24 02/23/24 02/23/24 Range/Units 22:02 22:04 22:47 WBC 20.19 H (4.50-11.00) K/uL RBC 5.22 H (4.00-5.20) m/uL Hgb 13.9 (12.0-16.0) gm/dL Hct 43.4 (33.0-51.0) % MCV 83 (80-100) fL MCH 27 (26-34) pg MCHC 32 (32-36) gm/dL RDW Coeff of Chris 15.9 H (11.5-15.5) % Plt Count 271 (140-440) K/uL Neut % (Auto) 82.8 H (42.0-72.0) % Lymph % (Auto) 11.3 L (20-44) % [place] % (Auto) 4.4 (0.0-11.0) % Eos % (Auto) 0.1 (0.0-7.0) % Baso % (Auto) 0.1 (0.0-3.0) % Neut # (Auto) 16.70 H (1.7-7.0) K/uL Lymph # (Auto) 2.30 (0.90-2.90) K/uL [place] # (Auto) 0.90 (0.00-0.90) K/UL Eos # (Auto) 0.00 (0.00-0.50) K/uL Baso # (Auto) 0.00 (0.00-0.30) K/uL Abs Immat Gran (auto) 0.30 (0.00-0.30) K/uL Imm/Tot Granulo (auto) 1.3 % Sodium 136 (135-149) mmol/L Potassium 3.4 L (3.6-5.1) mmol/L Chloride 102 (96-114) mmol/L Carbon Dioxide 29 (20-32) mmol/L Anion Gap 5 L (7-15) mEq/L BUN 11 (7-30) mg/dL Creatinine 0.5 (0.5-1.5) mg/dL Estimated Creat Clear 100.45 Estimated GFR 113 ml/min Glucose 120 H (60-115) mg/dL Lactate 1.2 (0.5-1.9) mmol/L Calcium 9.1 (8.4-10.6) mg/dL Total Bilirubin 0.5 (0.1-1.5) mg/dL Direct Bilirubin 0.3 (0.0-0.5) mg/dL AST 39 H (12-35) U/L ALT 63 H (4-35) U/L Alkaline Phosphatase 90 (40-150) U/L C-Reactive Protein 7.5 H (0.5-1.0) mg/dL Total Protein 7.3 (6.0-8.3) g/dL Albumin 4.5 (3.3-5.0) g/dL Amylase 78 (18-89) U/L Lipase 48 (23-300) U/L Procalcitonin 0.09 (<0.50) ng/mL Urine Color Yellow (Yellow) Urine Appearance Clear (Clear) Urine pH 5.5 (5.0-8.5) Ur Specific [place] >= 1.030 (1.000-1.030) Urine Protein Trace A (Negative) Urine Glucose (UA) Negative (Negative) Urine Ketones Trace A (Negative) Urine Blood Trace-intact A (Negative) Urine Nitrite Negative (Negative) Urine Bilirubin 1+ A (Negative) Urine Urobilinogen 0.2 (0.2-1.0) Ur Leukocyte Esterase Negative (Negative) Urine RBC 0-2 (0-2) Urine WBC 0-2 (0-5) Ur Squamous Epith Cells Moderate A (None-Few) Urine Bacteria Moderate A (None) Stl C. diff Tox B Gene (Negative) Stl C. diff [id number] (Negative) Lab Acknowledgement Test Added 02/24/24 Range/Units 01:10 WBC (4.50-11.00) K/uL RBC (4.00-5.20) m/uL Hgb (12.0-16.0) gm/dL Hct (33.0-51.0) % MCV (80-100) fL MCH (26-34) pg MCHC (32-36) gm/dL RDW Coeff of Chris (11.5-15.5) % Plt Count (140-440) K/uL Neut % (Auto) (42.0-72.0) % Lymph % (Auto) (20-44) % [place] % (Auto) (0.0-11.0) % Eos % (Auto) (0.0-7.0) % Baso % (Auto) (0.0-3.0) % Neut # (Auto) (1.7-7.0) K/uL Lymph # (Auto) (0.90-2.90) K/uL [place] # (Auto) (0.00-0.90) K/UL Eos # (Auto) (0.00-0.50) K/uL Baso # (Auto) (0.00-0.30) K/uL Abs Immat Gran (auto) (0.00-0.30) K/uL Imm/Tot Granulo (auto) % Sodium (135-149) mmol/L Potassium (3.6-5.1) mmol/L Chloride (96-114) mmol/L Carbon Dioxide (20-32) mmol/L Anion Gap (7-15) mEq/L BUN (7-30) mg/dL Creatinine (0.5-1.5) mg/dL Estimated Creat Clear Estimated GFR ml/min Glucose (60-115) mg/dL Lactate (0.5-1.9) mmol/L Calcium (8.4-10.6) mg/dL Total Bilirubin (0.1-1.5) mg/dL Direct Bilirubin (0.0-0.5) mg/dL AST (12-35) U/L ALT (4-35) U/L Alkaline Phosphatase (40-150) U/L C-Reactive Protein (0.5-1.0) mg/dL Total Protein (6.0-8.3) g/dL Albumin (3.3-5.0) g/dL Amylase (18-89) U/L Lipase (23-300) U/L Procalcitonin (<0.50) ng/mL Urine Color (Yellow) Urine Appearance (Clear) Urine pH (5.0-8.5) Ur Specific [place] (1.000-1.030) Urine Protein (Negative) Urine Glucose (UA) (Negative) Urine Ketones (Negative) Urine Blood (Negative) Urine Nitrite (Negative) Urine Bilirubin (Negative) Urine Urobilinogen (0.2-1.0) Ur Leukocyte Esterase (Negative) Urine RBC (0-2) Urine WBC (0-5) Ur Squamous Epith Cells (None-Few) Urine Bacteria (None) Stl C. diff Tox B Gene Negative (Negative) Stl C. diff [id number] PRESUMPTIVE NEGATIVE (Negative) Lab Acknowledgement Imaging Data CT scan - abdomen: Attestation: I have reviewed the pertinent imaging results. My impression: Segmental colitis, of the ascending colon. No free air, there is also an infiltrate in the left lower lobe. Radiologist's impression: atient: Debby Yang MR#: [id number] : 1970 Acct:[id number] Loc: ED Service Date: 02/23/[address]: Ordering Physician: Jamison Dale M.D. Date of Service: 02/23/24 Procedure(s): CT abdomen pelvis w con Accession Number(s): [id number] cc: Aminah Perea PA-C; Jamison Dale M.D.~ For Patients: As a result of the Cures Act, medical imaging exams and procedure reports are released immediately into your electronic medical record. You may view this report before your referring provider. If you have questions, please contact your health care provider. INDICATION: Back pain, abdominal pain, fever, chills. TECHNIQUE: CT of the abdomen and pelvis acquired with 89 cc Isovue 370 IV contrast. Coronal and sagittal reconstructions. COMPARISON: None. FINDINGS: The liver, spleen, pancreas, and adrenal glands are negative. Cholecystectomy. No biliary dilation. Hepatic and portal veins are patent. Symmetric enhancement of the kidneys. Tiny hypodensity in the lower pole of the right kidney is too small to characterize. No hydronephrosis or ureteral dilation. No obstructing urinary calculi identified. No bladder wall thickening. Hysterectomy. Postoperative changes of Torin-en-Y gastric bypass and rectosigmoid anastomosis. No small bowel dilation. There is prominent diffuse wall thickening throughout the colon with mucosal hyperenhancement and pericolonic vascular engorgement. Findings are compatible with a nonspecific colitis. Fluid throughout the colon which can be seen with diarrhea. The appendix is not identified. No intraperitoneal free air or fluid. Mildly prominent right lower quadrant mesenteric lymph nodes are likely reactive. Small fat containing umbilical hernia. Subtle ground-glass opacity in the lateral left lower lobe may represent atelectasis or early developing infiltrate. The bones are unremarkable IMPRESSION: 1. Prominent diffuse inflammatory changes of the colon compatible with a nonspecific colitis. Fluid throughout the colon which can be seen with diarrhea. 2. Subtle ground-glass opacity in the lateral left lower lobe may represent atelectasis or early developing infiltrate. Please note that all CT scans at this facility use dose modulation, iterative reconstruction, and/or weight-based dosing when appropriate to reduce radiation dose to as low as reasonably achievable. Dictated by Nickie Maciel MD @ 02/24/2024 12:38:51 AM (Electronically Signed) Discharge Plan Discharge Clinical Impression: Colitis, Infiltrate of lower lobe of left lung present on imaging study Patient Disposition: Home w/ Parent or Adult Condition: Improved Instructions: Acute Nausea and Vomiting (DC), Acute Diarrhea (ED), Colitis (ED) Additional Instructions: Take antibiotics as directed, pain medication also as directed. Follow up Monday or Monday with primary care for recheck, if this is an ongoing issue you may need further help with GI. Recommend also that you consider getting a dedicated CT scan of your chest, as in the left lower part of your chest there is an infiltrate, and I wonder if this is what they possibly were treating you for in the past with pneumonia. This can be also done through your primary care person. Activity Level: Light activity Prescriptions: New metronidazole 500 mg tablet 500 mg PO BID Qty: 20 0RF ciprofloxacin HCl [Cipro] 500 mg tablet 500 mg PO BID Qty: 20 0RF No Action estradiol 0.01 % (0.1 mg/gram) cream 1 g vaginal Follow Up/Referrals: Aminah Perea PA-C [Primary Care Provider] - Stand Alone Forms: [facility] Info Instructions
[2024-02-23 22:43] LABS: Procalcitonin* 0.09 ng/mL (<0.50)
--- NOTE | 2024-02-23 22:47 | CRLHL7_ITS ---
For Patients: As a result of the Century Cures Act, medical imaging exams and procedure reports are released immediately into your electronic medical record. You may view this report before your referring provider. If you have questions, please contact your health care provider. INDICATION: Back pain, abdominal pain, fever, chills. TECHNIQUE: CT of the abdomen and pelvis acquired with 89 cc Isovue 370 IV contrast. Coronal and sagittal reconstructions. COMPARISON: None. FINDINGS: The liver, spleen, pancreas, and adrenal glands are negative. Cholecystectomy. No biliary dilation. Hepatic and portal veins are patent. Symmetric enhancement of the kidneys. Tiny hypodensity in the lower pole of the right kidney is too small to characterize. No hydronephrosis or ureteral dilation. No obstructing urinary calculi identified. No bladder wall thickening. Hysterectomy. Postoperative changes of Torin-en-Y gastric bypass and rectosigmoid anastomosis. No small bowel dilation. There is prominent diffuse wall thickening throughout the colon with mucosal hyperenhancement and pericolonic vascular engorgement. Findings are compatible with a nonspecific colitis. Fluid throughout the colon which can be seen with diarrhea. The appendix is not identified. No intraperitoneal free air or fluid. Mildly prominent right lower quadrant mesenteric lymph nodes are likely reactive. Small fat containing umbilical hernia. Subtle ground-glass opacity in the lateral left lower lobe may represent atelectasis or early developing infiltrate. The bones are unremarkable IMPRESSION: 1. Prominent diffuse inflammatory changes of the colon compatible with a nonspecific colitis. Fluid throughout the colon which can be seen with diarrhea. 2. Subtle ground-glass opacity in the lateral left lower lobe may represent atelectasis or early developing infiltrate. Please note that all CT scans at this facility use dose modulation, iterative reconstruction, and/or weight-based dosing when appropriate to reduce radiation dose to as low as reasonably achievable. Dictated by Nickie Maciel MD @ 02/24/2024 12:38:51 AM (Electronically Signed)
[2024-02-23 23:08] LABS: Lipase* 48 U/L (23-300)
[2024-02-24 00:12] VITALS: BP 140/70; PULSE 80; RESP 16; TEMP 36.9; O2SAT 97
[2024-02-24] MEDS: HYDROmorphone 0.5 mg/0.5 ml inj IVP (01:32)
[2024-02-24 02:02] LABS: C.Difficile Negative (Negative); CDIFFEPI 027 PRESUMPTIVE NEGATIVE (Negative)
[2024-02-24] MEDS: metroNIDAZOLE 500 MG TABLET PO (02:08)
[2024-02-24] MEDS: CIPROFLOXACIN 500 MG TABLET PO (02:08)
[2024-02-24 02:11] VITALS: BP 135/82; PULSE 84; RESP 16; TEMP 36.9; O2SAT 97
== END 2024-02-24 02:30 | disposition home or self-care (01) ==
PROVIDERS: Emergency Provider Family Medicine; PCP Physician Assistant Medical
DX: K52.9 Noninfective gastroenteritis and colitis, unspecified (principal); R91.8 Other nonspecific abnormal finding of lung field
CPT/HCPCS: 36415; 74177; 80048; 80076; 81001; 82150; 82270; 83605; 83690; 84145; 85025; 86140; 87040; 87045; 87046; 87077; 87086; 87147; 87427; 87493; 94761; 96374; 96375; 96376; 99284; A9270; J1170; J2405; J7030; Q9967